=== PATIENT | female | born 2000 | race Caucasian/White ===

== ENCOUNTER 2020-12-18 20:44 | Emergency (ER) | payer SELFPAY ==
[2020-12-18] MEDS ORDERED: IBUPROFEN800 MG PO (22:03)
[2020-12-18] MEDS ORDERED: PERCOCET 5/325 T1 EA PO (22:15)
== END 2020-12-18 22:29 | disposition home or self-care (01) ==
LOC: ER1 20:44
DX: S82.831A Other fracture of upper and lower end of right fibula, initial encounter for closed fracture (principal); S82.434A Nondisplaced oblique fracture of shaft of right fibula, initial encounter for closed fracture; F17.210 Nicotine dependence, cigarettes, uncomplicated; Z88.2 Allergy status to sulfonamides; X58.XXXA Exposure to other specified factors, initial encounter; Y93.44 Activity, trampolining; Y92.830 Public park as the place of occurrence of the external cause
CPT/HCPCS: 73610; 96372; 99283; J1885